=== PATIENT | female | born 1985 | race Caucasian/White ===

== ENCOUNTER 2020-08-25 16:56 | Emergency (ER) | payer MEDICAID ==
[~2020-08-25] VITALS: Ht 167.6 cm; Wt 78.5 kg
[2020-08-25 17:25] VITALS: BP_SYST 137
--- NOTE | 2020-08-25 17:30 | NUR ---
TRIAGED AND PLACED IN THE LOBBY.
--- NOTE | 2020-08-25 18:50 | NUR ---
Patient to ER bed 5 to gown for evaluation. Side rails up. Report given to SARAH.
--- NOTE | 2020-08-25 19:10 | NUR ---
Patient AAO x 4 ambulates to ER bed 5 with c/o shortness of breath today. Patient has h/o asthma but ran out of rescue inhaler at home. She also reports abscess to L buttock. Even chest rise and fall with respirations with mild tachypnea. Will continue to monitor.
--- NOTE | 2020-08-25 19:10 | NUR ---
ER Dr. Quiñones at bedside examining patient.
[2020-08-25] MEDS ORDERED: BACITRACIN/POLYMYXIN B SULFATE 30 GM TOPICAL OINT. TP SCH (19:15)
[2020-08-25] MEDS ORDERED: ALBUTEROL SULFATE 0.083% 2.5 MG/3 ML VIAL.NEB INH ONE (19:15)
[2020-08-25] MEDS ORDERED: cephALEXin 500 MG CAPSULE PO ONE (19:15)
[2020-08-25 19:27] VITALS: BP_SYST 130
[2020-08-25] MEDS ORDERED: BACITRACIN 1 GM OINT TP ONE (19:27)
--- NOTE | 2020-08-25 19:27 | NUR ---
Patient given written and verbal discharge instructions and verbalizes understanding. ER MD Dr. Quiñones discussed with patient the results and treatment provided. Patient in stable condition. ID arm band removed. Rx of Keflex, Albuterol, Neosporin given. Patient educated on medication and to follow up with PCP. Pain Scale 0/10. Opportunity for questions provided and answered. Medication side effect fact sheet provided.
== END 2020-08-25 19:27 | disposition home or self-care (01) ==
LOC: SED 16:56 → EDBD 16:56 → SED 19:27
DX: J45.901 Unspecified asthma with (acute) exacerbation (principal)
CPT/HCPCS: 94640; 99283; J7613